=== PATIENT | female | born 1975 | race Caucasian/White ===

== ENCOUNTER 2022-09-30 09:49 | Day surgery (SDC) | payer OTHER, SELFPAY ==
[2022-09-30 10:10] VITALS: BP 134/83; PULSE 73; RESP 16; TEMP 36.6; O2SAT 98; BMI 24.4
[2022-09-30] MEDS: LACTATED RINGERS 1,000 ML 42 ML IV ×2 (10:37→13:43)
--- NOTE | 2022-09-30 13:12 | PM.HP.1 ---
History of Present Illness History of Present Illness Chief complaint: Colonoscopy Narrative: Presents today for a screening colonoscopy. No family history of colon cancer. Only history of surgery is D&C. And no concerning symptoms. Patient History Family & Social History Social History: household members friend(s) Tobacco & Substance use: Smoking Status Never smoker alcohol intake current alcohol intake frequency holiday/special occasion Substance Use Type does not use Meds Home Medications and Allergies Allergies Allergy/AdvReac Type Severity Reaction Status Date / Time No Known Drug Allergies Allergy Verified 09/30/22 10:35 Exam Vital Signs (past 8 hours): - 09/30/22 10:10 Temperature 97.9 F Pulse Rate 73 Respiratory Rate 16 Blood Pressure 134/83 Pulse Oximetry 98 Oxygen Delivery Method Room Air Oxygen Delivery Method Room Air Const General: cooperative, healthy appearing and comfortable HENMT Head: normal to inspection (Glasses) Resp Effort & Inspection: normal respiratory effort and able to speak in complete sentences Cardio Pulses: radial pulses present GI Palpation: soft and No tender Assessment & Plan Assessment and plan (1) Screening for colon cancer: Status: Acute Assessment & Plan narrative: I discussed the risks benefits and alternatives of a screening colonoscopy, including but not limited to perforation of the colon and incomplete exam. She understands these and would like to proceed Time Spent With Patient Critical Care time: I spent a total of [] minutes of critical care time on this patient's care today; this time is exclusive of procedural time.
[2022-09-30 13:56] VITALS: BP 146/76; PULSE 85; RESP 12; TEMP 36.5; O2SAT 97
[2022-09-30 14:01] VITALS: BP 156/86; PULSE 82; RESP 18; O2SAT 98
[2022-09-30 14:06] VITALS: BP 143/77; PULSE 69; RESP 20; O2SAT 98
--- NOTE | 2022-09-30 15:24 | PM.OP.COLON ---
Procedure & Clinicians Study performed: Colonoscopy, average risk Same procedure as scheduled: Yes Indications: Colon cancer screening Surgeon: Yesica Brandt Procedure Notes Procedure in detail: Patient was taken to the endoscopy suite and placed in a left lateral decubitus position. Time-out was performed. Anesthesiologist assisted the induction of conscious sedation. Digital rectal exam was performed there were no masses or strictures. The colonoscope was introduced into the anal canal and advanced through to the cecum. Some abdominal pressure was required to enter the cecum a photograph of the appendiceal orifice was obtained. Prep was excellent [place] bowel prep of 3. The scope was then withdrawn for 15 minutes. No polyps were seen. Patient tolerated the procedure well and went in good condition to postoperative care unit. Specimen(s): none sent Post-procedure Recommendations: Colonoscopy in 10 years Plan for aftercare: Follow up in 10 years unless there is a change in family history or development of symptoms.
== END 2022-09-30 14:24 | disposition home or self-care (01) ==
PROVIDERS: PCP Physician Assistant Medical; Referring Provider Surgery; Visit Provider Surgery
PROC: 0DJD8ZZ Inspection of Lower Intestinal Tract, Via Natural or Artificial Opening Endoscopic (ICD-10-PCS; CPT 45378; principal; 2022-09-30 10:45)
DX: Z12.11 Encounter for screening for malignant neoplasm of colon (principal)
CPT/HCPCS: 45378; J2704; J3010

== ENCOUNTER 2025-06-03 21:56 | Emergency (ER) | payer OTHER, SELFPAY ==
[2025-06-03 22:10] VITALS: BP 138/77; PULSE 82; RESP 16; TEMP 36.9; O2SAT 99; BMI 23.0
--- NOTE | 2025-06-03 23:10 | ED.ALLEREA ---
HPI - Allergic Reaction General Chief complaint: Allergic Reaction Stated complaint: Allergic reaction/ throat pain/sob Time Seen by Provider: 06/03/25 22:46 Source: patient Mode of arrival: Ambulatory History of Present Illness HPI narrative: Patient is a healthy 49-year-old female who presents today with urticaria and pruritus mostly on her arms. Today she felt some difficulty swallowing earlier but took 2 Zyrtec and says that it is feeling better. She has been having these symptoms off and on for the last few weeks. Tonight was the 1st night she felt like her throat was closing but it is starting to feel better. She is still pretty itchy and has a obvious urticaria on her arms. She is set to follow up with primary care provider and get allergy testing. Related Data Previous Rx's ?Medication ?Instructions ?Recorded prednisone 20 mg tablet 40 mg (2 x 20 mg) PO DAILY #10 tabs 06/03/25 Allergies Allergy/AdvReac Type Severity Reaction Status Date / Time No Known Drug Allergies Allergy Verified 06/03/25 22:09 Patient History Social History household members: friend(s) Smoking Status: Never smoker alcohol intake: current Smoking Status: Never smoker alcohol intake frequency: holidays/special occasions only Exam Initial Vital Signs Initial Vital Signs: Vital Signs Temperature 98.4 F 06/03/25 22:10 Pulse Rate 82 06/03/25 22:10 Respiratory Rate 16 06/03/25 22:10 Blood Pressure 138/77 06/03/25 22:10 Pulse Oximetry 99 06/03/25 22:10 Oxygen Delivery Method Room Air 06/03/25 22:10 GENERAL: Well-appearing, well-nourished and in no acute distress. HEENT: Head atraumatic,EOMI, pupils reactive, no obvious tongue swelling lip swelling no muffled voice managing her own secretions CARDIOVASCULAR: Regular rate and rhythm without murmurs, rubs or gallops. RESPIRATORY: Breath sounds equal bilaterally, no wheezes rales or rhonchi. ABDOMEN: Soft, nontender. Normoactive bowel sounds all 4 quadrants. No guarding or rebound. EXTREMITIES: Normal range of motion, no clubbing or edema. Neurovascularly intact NEUROLOGICAL: Alert and oriented x4.Normal gait and speech. SKIN: Urticaria on arms Course Orders Ordered: Discontinued Medications Diphenhydramine HCl (Diphenhydramine 25 Mg Tablet) 25 mg PO NOW ONE Stop: 06/03/25 23:16 Last Admin: 06/03/25 23:25 Dose: 25 mg Prednisone (Prednisone 20 Mg Tablet) 40 mg PO NOW ONE Stop: 06/03/25 23:16 Last Admin: 06/03/25 23:25 Dose: 40 mg Vital Signs Vital signs: Vital Signs - 8 hr 06/03/25 22:10 06/03/25 23:24 Temperature 98.4 F Pulse Rate 82 73 Respiratory Rate 16 16 Blood Pressure 138/77 137/65 Pulse Oximetry 99 98 Oxygen Delivery Method Room Air Room Air MDM - Allergic Reaction MDM Narrative Medical decision making narrative: Patient is a 49-year-old female presenting today with urticaria. She was having some concerns swallowing but that has now improved. She has no evidence of angioedema no airway compromise. She is given prednisone and Benadryl here. She has outpatient follow up. Discharge Plan Departure Patient Disposition: Home Clinical Impression: Urticaria Instructions: DI for Hives Activity Restrictions/Additional Instructions: *You have been diagnosed with urticaria *What to do: At this time I do recommend allergy testing *Continue to take medications as directed Prednisone 40 mg once a day for 3-5 days Benadryl 25-50 mg if needed for significant itching Continue Zyrtec as prescribed *Follow up with your primary care provider in 2-3 days or call [phone] *Return to ER if you should have increased difficulty breathing worsening rash or any new, worsening or concerning symptoms Prescriptions: New prednisone 20 mg tablet 40 mg PO DAILY Qty: 10 0RF Referrals: Poornima Pratt PA-C [Primary Care Provider, [facility]] Stand Alone Forms: Patient Portal/API
[2025-06-03 23:24] VITALS: BP 137/65; PULSE 73; RESP 16; O2SAT 98
[2025-06-03] MEDS: diphenhydrAMINE 25 MG TABLET PO (23:25)
== END 2025-06-03 23:28 | disposition home or self-care (01) ==
PROVIDERS: Emergency Provider Emergency Medicine; PCP Physician Assistant Medical
DX: L50.9 Urticaria, unspecified (principal)
CPT/HCPCS: 99283